=== PATIENT | male | born 1985 | race Caucasian/White ===

== ENCOUNTER 2020-04-27 14:45 | Emergency (ER) | payer OTHER, MEDICAID ==
[~2020-04-27] VITALS: Ht 193 cm; Wt 89.4 kg
[2020-04-27] MEDS ORDERED: KEFLEX500 M1 PO (15:19)
[2020-04-27 15:26] VITALS: BP 132/83
== END 2020-04-27 15:27 | disposition home or self-care (01) ==
LOC: M.ERS 14:45
DX: S60.352A Superficial foreign body of left thumb, initial encounter (principal); F17.210 Nicotine dependence, cigarettes, uncomplicated; Z91.018 Allergy to other foods; Z88.8 Allergy status to other drugs, medicaments and biological substances; W45.0XXA Nail entering through skin, initial encounter; Y93.89 Activity, other specified; Y92.89 Other specified places as the place of occurrence of the external cause; Y99.8 Other external cause status